=== PATIENT | female | born 1980 ===

== ENCOUNTER 2018-06-04 22:27 | Emergency (ER) | payer SELFPAY ==
[2018-06-04] MEDS ORDERED: NS(*) 0.9% 1000 ML BAG 1,000 ML IV ONE (22:55)
[2018-06-04 23:09] LABS: PLATELET COUNT, AUTOMATED 206 K/uL (150-450)
[2018-06-04 23:12] LABS: INR 1.9
--- NOTE | 2018-06-04 23:19 | RADIOLOGY IMAGING REPORT ---
[facility] PATIENT NAME: Sandra Sanderson : 1980 MR: [id number] V: [id number] EXAM DATE: ORDERING PHYSICIAN: DONALD JUDGE TECHNOLOGIST: Location: [facility] [place] Patient: Sandra Sanderson : 1980 Visit/Account:[id number] Date of Sevice: 06/04/2018 Portable chest: Indication: Tube placement. Technique: A single frontal film was obtained. Comparison: None. Lines and tubes: The tip of the ET tube is approximately 6.3 cm above the hailey. The nasogastric tub e extends below the diaphragm. Skeletal and soft tissue structures: Intact and unremarkable. Heart and mediastinum: Within normal limits. Lung fernández: Well-expanded. No focal opacities. Pleural spaces: No evidence of pneumothorax or effusion. Impression: The ET tube and NG tube are in satisfactory position. The lung fernández are clear. Report Dictated By: Nazario Young MD at 06/04/2018 11:14 PM Report E-Signed By: Nazario Young MD at 06/04/2018 11:16 PM WSN:[id number]
--- NOTE | 2018-06-04 23:23 | EKG ---
FACILITY: [facility] PATIENT NAME: DEDE BAZZI : [id number] MR: [id number] V: [id number] EXAM DATE: ORDERING PHYSICIAN: DONALD JUDGE TECHNOLOGIST: Test Reason : Blood Pressure : / mmHG Vent. Rate : 100 BPM Atrial Rate : 099 BPM P-R Int : 106 ms QRS Dur : 086 ms QT Int : 426 ms P-R-T Axes : 074 079 085 degrees QTc Int : 549 ms Normal sinus rhythm ST and T wave abnormality, consider anterior ischemia Prolonged QT Abnormal ECG No previous ECGs available Confirmed by FRANKI DURAN ([id number]) on 06/05/2018 6:00:40 AM Referred By: Confirmed By:FRANKI DURAN
[2018-06-04] MEDS ORDERED: PIPERACILLIN/TAZO*3.375GM VIAL 3.375 GM in NS(*) 0.9% 100 ML ADDVANT BAG 100 ML IVPB ONE (23:55)
[2018-06-05] MEDS ORDERED: LACTULOSE 10 GM/15 ML UDCUP PO ONE (01:10)
[2018-06-05] MEDS ORDERED: MIDAZOLAM 50 MG/10 ML VIAL 100 MG in NS(*) 0.9% 100 ML BAG 80 ML IV SCH (01:25)
--- NOTE | 2018-06-05 01:34 | RADIOLOGY IMAGING REPORT ---
FACILITY: [facility] [place] PATIENT NAME: Sandra Sanderson : 1980 MR: [id number] V: [id number] EXAM DATE: ORDERING PHYSICIAN: DONALD JUDGE TECHNOLOGIST: Location: [facility] Patient: Sandra Sanderson : 1980 Visit/Account:[id number] Date of Sevice: 06/04/2018 ADDENDUM #1 One of the following dose optimization techniques was utilized in the performance of this exam: Autom ated exposure control; adjustment of the mA and/or kV according to the patient's size; or use of an i terative reconstruction technique. Specific details can be referenced in the facility's radiology C T exam operational policy. Report Dictated By: Andrew Boyle MD at 06/16/2018 6:40 PM Report E-Signed By: Andrew Boyle MD at 06/16/2018 6:43 PM ORIGINAL REPORT CHEST/AB/PELV W/OUT CONTRAST EXAMINATION: CT chest without contrast Additional Pertinent history: Trauma/altered mental status TECHNIQUE: Spiral scan was obtained through the chest /abdomen/pelvis without contrast from lung apex to upper abdomen COMPARISON STUDIES: none. FINDINGS: Lungs / pleura: No pneumothorax. No obvious lung contusion change. Mild bronchial thickening changes noted throughout both lung fernández with no consolidation effusion or parenchymal mass lesion seen. Mediastinum / darien: negative Heart / pericardium: negative Vessels: negative Musculoskeletal / Body wall: No acute fractures noted. Vertebral bodies well-maintained with no compr ession deformities or fractures. Posterior elements are intact. Lower sacrum has a cortical offset ap pearing represent fracture. This correlates with an area of patient motion, however. Lymph node assessment: negative Lower neck: negative Liver / biliary: Fatty infiltrative changes within the liver. No focal liver lesion. No perihepatic f luid. Pancreas: negative Spleen: No splenic laceration. No perisplenic fluid. Adrenal glands: negative Kidneys / retroperitoneum: negative Pelvis: Shrestha catheter within the bladder which is decompressed. Bowel / peritoneum / mesenteries: No colonic mass lesions. No bowel inflammation. No interloop fluid. Vessels: negative Musculoskeletal / Body wall: No obvious fractures noted. There is a central viral load compression ch jd involving the L3 vertebral body. Posterior elements are well-maintained and aligned. Lymph node assessment: negative Lower chest: negative IMPRESSION: 1. Negative CT scan of the chest/abdomen/pelvis for acute traumatic injury. 2. Fatty infiltrative changes within the liver. Bronchial thickening changes noted 3. Pseudofracture appearance lower sternum from breathing artifact. Report Dictated By: Andrew Boyle MD at 06/05/2018 1:16 AM Report E-Signed By: Andrew Boyle MD at 06/05/2018 1:31 AM WSN:[id number]
--- NOTE | 2018-06-05 01:36 | RADIOLOGY IMAGING REPORT ---
FACILITY: [facility] [place] PATIENT NAME: Sandra Sanderson : 1980 MR: [id number] V: [id number] EXAM DATE: ORDERING PHYSICIAN: DONALD JUDGE TECHNOLOGIST: Location: [facility] Patient: Sandra Sanderson : 1980 Visit/Account:[id number] Date of Sevice: 06/04/2018 ADDENDUM #2 The heading should have said " CT scan of the cervical spine without contrast" Report Dictated By: Andrew Boyle MD at 06/20/2018 6:30 PM Report E-Signed By: Andrew Boyle MD at 06/20/2018 6:31 PM ADDENDUM #1 One of the following dose optimization techniques was utilized in the performance of this exam: Autom ated exposure control; adjustment of the mA and/or kV according to the patient's size; or use of an i terative reconstruction technique. Specific details can be referenced in the facility's radiology C T exam operational policy. Report Dictated By: Andrew Boyle MD at 06/16/2018 6:44 PM Report E-Signed By: Andrew Boyle MD at 06/16/2018 6:44 PM ORIGINAL REPORT C-SPINE W/O CONTRAST EXAMINATION: CT cervical spine with contrast Additional pertinent history: Trauma/altered mental status COMPARISON STUDIES: 09/11/2012 not available TECHNIQUE: Axial images were obtained from the skull base through the upper thoracic spine with IV co ntrast administration. Coronal and sagittal reformatted images were obtained from the axial source da ta. FINDINGS: Prevertebral soft tissues: Negative Alignment: Negative Vertebral bodies: There is cortical offset of the C2 vertebral body on the sagittal images creating t he appearance of a C2 fracture from motion artifact. This is also rendering cortical offset of the ri ght mandible creating a similar cortical offset pseudofracture on the coronal images (image 34/84 ser ies 7) Posterior elements: Posterior elements are well-maintained with no fracture or facet disruption to ordonez ggest acute fracture. Disc spaces: Negative Visualized soft tissues anterior neck: ET tube and NG tube traversing the anterior soft tissues. Visualized lung/mediastinum: Negative IMPRESSION: 1. Motion artifact degrading images significantly particularly at the C2 level creating a pseudofract ure appearance of the C2 vertebral body and of the right mandible. No obvious acute fracture noted. Report Dictated By: Andrew Boyle MD at 06/05/2018 1:04 AM Report E-Signed By: Andrew Boyle MD at 06/05/2018 1:33 AM WSN:[id number]
--- NOTE | 2018-06-05 01:38 | RADIOLOGY IMAGING REPORT ---
FACILITY: [facility] [place] PATIENT NAME: Sandra Sanderson : 1980 MR: [id number] V: [id number] EXAM DATE: ORDERING PHYSICIAN: DONALD JUDGE TECHNOLOGIST: Location: [facility] [place] Patient: Sandra Sanderson : 1980 Visit/Account:[id number] Date of Sevice: 06/04/2018 HEAD W/O CONTRAST EXAMINATION: CT head/brain without contrast HISTORY: Trauma. Altered mental status TECHNIQUE: Contiguous axial images were obtained from the skull base to the vertex without intravenou s contrast. One of the following dose optimization techniques was utilized in the performance of this exam: Autom ated exposure control; adjustment of the mA and/or kV according to the patient's size; or use of an i terative reconstruction technique. Specific details can be referenced in the facility's radiology C T exam operational policy. COMPARISON STUDIES: None FINDINGS: Ventricles/sulci/fissures: Negative Masses/hemorrhage/midline shift: Negative White matter: No white matter edema. Jose-white differentiation: No cerebral edema Extra-axial spaces: No subdural or epidural fluid collections. No subarachnoid blood Dural venous sinuses/arterial structures: Negative Skull base/calvarium: Negative Visualized mastoid air cells/paranasal sinuses: Negative IMPRESSION: 1. Negative CT scan of the head for acute intracranial pathology. Report Dictated By: Andrew Boyle MD at 06/05/2018 1:33 AM Report E-Signed By: Andrew Boyle MD at 06/05/2018 1:35 AM WSN:[id number]
[2018-06-05] MEDS ORDERED: MIDAZOLAM 50 MG/10 ML VIAL IV ONE ×2 (01:54→01:55)
[2018-06-05] MEDS ORDERED: NS(*) 0.9% 100 ML BAG 100 ML ONE (01:55)
[2018-06-05] MEDS ORDERED: NOREPINEPH BITAR 4 MG/4 ML AMP ONE (03:46)
[2018-06-05] MEDS ORDERED: D5W(*) 250 ML BAG 250 ML ONE ×2 (03:46→06:34)
[2018-06-05 04:10] VITALS: BP 104/56
[2018-06-05] MEDS ORDERED: SODIUM BICAR(* 8.4% 50 ML SYR 50 ML SYR ONE (04:57)
[2018-06-05] MEDS ORDERED: KCL (*) 20 MEQ/100 ML PREMIX 100 ML ONE ×2 (05:00→05:01)
--- NOTE | 2018-06-05 05:33 | ER Report ---
History and Physical Time Seen By MD: 05:29 HPI/ROS CHIEF COMPLAINT: Unresponsive, " code blue" HISTORY OF PRESENT ILLNESS: Patient is a 38-year-old female here after being found unresponsive by the patient's boyfriend. Reportedly, earlier today, the patient was drinking vodka her boyfriend's report and attempted to take a nap in her yard prompting the boyfriend put her to sleep inside. Several hours later , per boyfriend's report, he checked on the patient and she was unarousable prompting EMS to be called. She was noted to have decreased oxygen saturations per EMS report in the 50s prompting [id number] oxygenation. Patient remained unresponsive at time of arrival in the emergency department at which time she was promptly intubated and resuscitation efforts were commenced. Patient had received Narcan 2 mg in the field, and a repeat dose was administered at time of arrival without resolution of symptoms. Patient also received an amp of D50. Patient was noted to be hypotensive in the 80s systolic prompting fluid administration. There are no obvious signs of trauma present on evaluation. Pupils were 3 and sluggish. Patient did not have purposeful movement at time of initial evaluation. Patient was initially hypothermic, see nursing notes for further details. Patient did have a history of depression, alcohol dependence, anxiety. REVIEW OF SYSTEMS: Unable to obtain due to patient's mental status Allergies: Coded Allergies: No Known Drug Allergies (Unverified , 09/12/16) Home Meds Active Scripts Sulfamethoxazole/Trimet 800-160 Mg Tab (BACTRIM DS TABLET) 1 Each Tablet, 1 TAB PO Q12H, #14 MG TAKE ONE TABLET BY MOUTH EVERY TWELVE HOURS Prov:FRITZ WATKINS MD 01/16/17 Reported Medications Multivitamin (MULTIVITAMINS) 1 Each Tablet, 1 EACH PO 09/12/16 Bupropion Hcl (WELLBUTRIN XL) 150 Mg Tab.er.24h, PO QDAY, TAB 09/12/16 Escitalopram Oxalate (LEXAPRO) 10 Mg Tab, FT, TAB 09/12/16 Hx Smoking: Yes Hx Substance Use Disorder: Yes (ETOH ABUSE/DEPENDANCE) Hx Alcohol Use: Yes (ABUSE/DEPENDANCE) Constitutional Vital Sign - Last 24 Hours 06/04/18 06/04/18 06/04/18 06/04/18 22:29 22:30 22:31 22:33 Pulse ? Resp 18 19 B/P (MAP) 87/34 (51) 06/04/18 06/04/18 06/04/18 06/04/18 22:35 22:36 22:37 22:39 Pulse 92 93 92 Resp 16 27 23 B/P (MAP) 81/71 (74) 06/04/18 06/04/18 06/04/18 06/04/18 22:41 22:43 22:45 22:45 Pulse ??? 91 88 Resp 26 25 23 B/P (MAP) 72/22 (39) FiO2 60.0 06/04/18 06/04/18 06/04/18 06/04/18 22:47 22:49 22:51 22:53 Pulse 91 ??? 101 102 Resp 25 24 22 23 B/P (MAP) 99/51 (67) Pulse Ox 74 100 100 06/04/18 06/04/18 06/04/18 06/04/18 22:55 22:55 22:57 22:59 Pulse 98 101 98 95 Resp 24 22 20 25 B/P (MAP) 105/51 (69) Pulse Ox 100 100 99 06/04/18 06/04/18 06/04/18 06/04/18 23:00 23:01 23:03 23:04 Pulse 97 95 Resp 20 26 B/P (MAP) 93/75 (81) 61/43 (49) Pulse Ox 85 100 06/04/18 06/04/18 06/04/18 06/04/18 23:05 23:07 23:08 23:09 Pulse 91 ??? 88 Resp 17 11 18 B/P (MAP) 76/67 (70) 74/32 (46) Pulse Ox 100 100 06/04/18 06/04/18 06/04/18 06/04/18 23:11 23:12 23:13 23:15 Pulse 83 94 98 Resp 21 18 17 B/P (MAP) 91/43 (59) Pulse Ox 100 100 100 06/04/18 06/04/18 06/04/18 06/04/18 23:16 23:17 23:19 23:20 Pulse 104 105 Resp 15 16 B/P (MAP) 83/52 (62) 78/52 (61) Pulse Ox 100 100 06/04/18 06/04/18 06/04/18 06/04/18 23:21 23:23 23:24 23:25 Pulse 100 95 90 Resp 15 16 25 B/P (MAP) 70/43 (52) Pulse Ox 78 100 100 06/04/18 06/04/18 06/04/18 06/04/18 23:27 23:28 23:29 23:31 Pulse 88 87 87 Resp 13 11 23 B/P (MAP) 70/44 (53) Pulse Ox 100 100 100 06/04/18 06/04/18 06/04/18 06/04/18 23:32 23:33 23:35 23:36 Pulse 89 91 Resp 21 24 B/P (MAP) 82/52 (62) 83/48 (60) Pulse Ox 97 98 06/04/18 06/04/18 06/04/18 06/04/18 23:37 23:39 23:40 23:41 Pulse 90 92 92 Resp 7 19 14 B/P (MAP) 70/45 (53) Pulse Ox 100 100 100 06/04/18 06/04/18 06/04/18 06/04/18 23:43 23:44 23:45 23:47 Pulse 91 88 89 Resp 18 23 22 B/P (MAP) 81/53 (62) Pulse Ox 95 95 93 06/04/18 06/04/18 06/04/18 06/04/18 23:48 23:49 23:51 23:52 Pulse 88 87 Resp 16 24 B/P (MAP) 89/45 (60) 80/52 (61) Pulse Ox 98 96 06/04/18 06/04/18 06/05/18 06/05/18 23:53 23:55 00:00 00:04 Pulse 89 90 Resp 27 10 B/P (MAP) 81/45 (57) 93/50 (64) Pulse Ox 96 98 06/05/18 06/05/18 06/05/18 06/05/18 00:08 00:12 00:16 00:17 Pulse 89 Resp 14 B/P (MAP) 91/45 (60) 80/62 (68) 90/20 (43) 06/05/18 06/05/18 06/05/18 06/05/18 00:20 00:23 00:24 00:25 Pulse 95 93 Resp 12 17 B/P (MAP) 54/51 (52) 95/55 (68) Pulse Ox 96 99 06/05/ 7//31 05//06/05/18 00:30 00:32 00:34 00:36 Pulse 96 98 95 95 Resp 31 10 9 B/P (MAP) 91/48 (62) 93/56 (68) Pulse Ox 79 81 98 06/05/06/05/31 05//06/05/18 00:38 00:40 00:44 00:48 Pulse 96 93 ??? Resp 17 23 25 B/P (MAP) 86/76 (79) 91/55 (67) 94/55 (68) Pulse Ox 97 90 100 06/05/31 05//31 05//06/05/18 00:50 00:54 00:55 00:56 Pulse 95 94 96 Resp 22 23 26 B/P (MAP) 101/53 (69) 103/59 (74) Pulse Ox 99 99 99 06/05/31 05// 7//06/05/18 00:58 01:00 01:02 01:04 Pulse 97 95 95 95 Resp 26 26 B/P (MAP) 101/55 (70) Pulse Ox 100 99 99 06/05/06/05/31 05//06/05/18 01:05 01:06 01:11 01:13 Pulse 97 99 99 Resp 26 B/P (MAP) 105/59 (74) Pulse Ox 100 100 100 06/05/1806/05/06/05/06/05/18 01:15 01:19 01:20 01:21 Pulse 99 100 100 Resp 25 30 B/P (MAP) 109/53 (71) 111/55 (73) Pulse Ox 98 99 06/05/ 7//18 7//06/05/18 01:23 01:25 01:27 01:29 Pulse 99 98 98 100 Resp 27 27 B/P (MAP) 107/55 (72) Pulse Ox 99 100 06/05/18 7//18 7//18 06/05/18 01:30 01:31 01:33 01:35 Pulse 97 99 104 Resp 28 23 22 B/P (MAP) 101/52 (68) 99/48 (65) Pulse Ox 94 93 81 7/23/18 7/23/18 7/23/18 7//18 01:37 01:39 01:40 01:41 Pulse 99 100 97 Resp 30 25 B/P (MAP) 101/32 (55) Pulse Ox 93 99 7/23/18 7/23/18 7/23/18 7//18 01:42 01:43 01:45 01:47 Pulse 98 95 97 Resp 20 25 B/P (MAP) 85/66 (72) 106/58 (74) Pulse Ox 100 7/23/18 7/23/18 7//18 7//18 01:49 01:50 01:50 01:51 Pulse 99 100 Resp 28 28 B/P (MAP) 114/66 (82) Pulse Ox 100 100 FiO2 100.0 7/23/18 7/23/18 7//18 7// 01:53 01:55 01:57 02:00 Pulse 101 102 Resp 26 22 B/P (MAP) 112/56 (74) 108/63 (78) Pulse Ox 100 100 7/23/18 7/23/18 7/23/18 7//18 02:03 02:05 02:07 02:10 Pulse 102 102 Resp 28 27 B/P (MAP) 108/64 (79) 114/56 (75) Pulse Ox 100 100 7/23/18 7/23/18 7/23/18 7//18 02:11 02:13 02:15 02:17 Pulse 101 102 102 104 Resp 28 25 26 B/P (MAP) 105/58 (74) Pulse Ox 100 100 100 7/23/18 7/23/18 7/23/18 7//18 02:19 02:20 02:21 02:23 Pulse 104 103 102 Resp 30 30 26 B/P (MAP) 112/57 (75) Pulse Ox 100 100 100 7/23/18 7/23/18 7/23/18 7//18 02:25 02:27 02:29 02:30 Pulse 106 110 109 Resp 26 24 B/P (MAP) 103/28 (53) 93/60 (71) Pulse Ox 100 100 7/23/18 7/23/18 7/23/18 7 02:31 02:33 02:35 02:37 Pulse 112 110 108 110 Resp 26 27 28 B/P (MAP) 102/58 (73) Pulse Ox 77 100 100 100 7/23/18 7/23/18 7/23/18 7/ 02:39 02:40 02:41 02:43 Pulse 107 111 111 Resp 27 B/P (MAP) 104/54 (71) Pulse Ox 100 23/18 7/23/18 7/23/18 06/05/18 02:45 02:47 02:50 02:51 Pulse 108 108 108 Resp 27 29 B/P (MAP) 104/60 (75) 106/53 (70) Pulse Ox 100 100 100 /23/18 7//18 7//06/05/18 02:55 02:57 02:59 03:00 Pulse 109 108 109 Resp 28 B/P (MAP) 102/56 (71) 107/54 (71) Pulse Ox 100 100 /23/18 7/23/18 7/23/18 7 03:01 03:03 03:05 03:07 Pulse 109 110 110 Resp 15 17 27 B/P (MAP) 82/61 (68) Pulse Ox 95 100 100 /23/18 7//18 7//18 06/05/18 03:09 03:10 03:12 03:14 Pulse 106 109 109 Resp 30 28 B/P (MAP) 97/45 (62) Pulse Ox 100 100 98 23/18 7//18 7/23/18 7 03:16 03:17 03:18 03:20 Pulse 108 111 114 Resp 63 28 29 B/P (MAP) 100/47 (64) 97/51 (66) Pulse Ox 100 96 98 7/23/18 7/23/18 7/23/18 06/05/18 03:24 03:25 03:26 03:28 Pulse 110 110 111 Resp 27 26 27 B/P (MAP) 95/47 (63) Pulse Ox 100 100 100 /23/18 7/23/18 7/23/18 7 03:30 03:32 03:34 03:35 Pulse 116 111 112 Resp B/P (MAP) 104/63 (77) 91/50 (64) Pulse Ox 100 100 99 06/05/18 06/05/18/06/05/18 03:36 03:38 03:40 03:42 Pulse 111 111 112 110 Resp B/P (MAP) 98/49 (65) Pulse Ox 99 99 96 99 06/05/18 06/05/18 06/05/18 06/05/18 03:45 03:46 03:48 03:50 Pulse 110 ??? Resp 29 B/P (MAP) 93/52 (66) 101/52 (68) Pulse Ox 99 100 06/05/18 06/05/18/06/05/18 03:52 03:54 03:55 03:56 Pulse 111 111 111 Resp B/P (MAP) 102/44 (63) Pulse Ox 97 96 96 06/05/06/05/18 06/05/18 06/05/18 03:58 04:00 04:02 04:04 Pulse 112 ??? 112 111 Resp 27 B/P (MAP) 91/57 (68) Pulse Ox 96 95 94 06/05/18 06/05/18 06/05/18 06/05/18 04:05 04:06 04:08 04:10 Pulse 112 ??? Resp 56 33 B/P (MAP) 105/51 (69) 104/56 (72) Pulse Ox 94 95 06/05/18 06/05/18 06/05/18 06/05/18 04:12 04:14 04:16 04:22 Pulse ? Resp 42 Pulse Ox 94 18 //18 /06/05/18 04:22 04:22 04:26 04:28 Pulse 97 124 121 Resp 27 Pulse Ox 97 91 FiO2 80.0 06/05/18 06/05/18 7//06/05/18 04:30 04:32 04:34 04:36 Pulse 122 120 120 120 Pulse Ox 97 97 97 97 06/05/18 04:38 Pulse ??? Pulse Ox 96 Physical Exam General Appearance: Unresponsive, intubated Eyes: Pupils 3 mm and sluggish, scleral icterus present ENT, Mouth: Endotracheal tube in place Respiratory: Lung sounds bilaterally Cardiovascular: Regular rate and rhythm. No murmur Gastrointestinal: Abdomen is soft and mildly distended, no masses, bowel sounds normal. Neurological: No purposeful movements, decorticated posturing present Skin: Cool and pale, no rashes. Musculoskeletal: Neck is supple, no signs of trauma DIFFERENTIAL DIAGNOSIS: After history and physical exam differential diagnosis was considered for liver failure, polysubstance abuse, trauma, overdose, electrolyte abnormality, toxic ingestion, anoxic brain injury Medical Decision Making Data Points Result Diagram: 06/04/18224606/04/182246 Laboratory Hematology Test 06/04/18 22:33 06/04/18 22:47 06/04/18 22:54 06/05/18 00:40 Whole Blood Glucose 379 mg/DL (75-110) Red Blood Count 2.00 M/uL (4.17-5.56) Mean Corpuscular Volume 124.5 fL (80.0-96.0) Mean Corpuscular Hemoglobin 35.1 pg (26.0-33.0) Mean Corpuscular Hemoglobin Concent 28.2 g/dL (32.0-36.0) Red Cell Distribution Width 20.3 % (11.5-14.5) Mean Platelet Volume 9.5 fL (7.2-11.1) Neutrophils (%) (Auto) 77.0 % (39.4-72.5) Lymphocytes (%) (Auto) 18.2 % (17.6-49.6) Monocytes (%) (Auto) 4.2 % (4.1-12.4) Eosinophils (%) (Auto) 0.2 % (0.4-6.7) Basophils (%) (Auto) 0.4 % (0.3-1.4) Nucleated RBC Relative Count (auto) 0.4 /100WBC Neutrophils # (Auto) 8.1 K/uL (2.0-7.4) Lymphocytes # (Auto) 1.9 K/uL (1.3-3.6) Monocytes # (Auto) 0.4 K/uL (0.3-1.0) Eosinophils # (Auto) 0.0 K/uL (0.0-0.5) Basophils # (Auto) 0.0 K/uL (0.0-0.1) Nucleated RBC Absolute Count (auto) 0.04 K/uL Peripheral Blood Smear Yes Y/N Prothrombin Time 22.1 seconds (12.0-14.4) Prothromb Time International Ratio 1.90 Activated Partial Thromboplast Time 54 seconds (23-35) Sodium Level 128 mmol/L (137-145) Potassium Level 3.1 mmol/L (3.5-5.0) Chloride Level 90 mmol/L (98-107) Carbon Dioxide Level < 5 mmol/L (22-31) Blood Urea Nitrogen 3 mg/dl (7-18) Creatinine 1.00 mg/dl (0.52-1.04) Glomerular Filtration Rate Calc > 60.0 Random Glucose 245 mg/dl (75-110) Calcium Level 9.0 mg/dl (8.4-10.2) Total Bilirubin 7.6 mg/dl (0.2-1.3) Aspartate Amino Transf (AST/SGOT) 475 U/L (0-35) Alanine Aminotransferase (ALT/SGPT) 79 U/L (0-56) Alkaline Phosphatase 210 U/L (0-126) Total Protein 5.9 g/dl (6.3-8.2) Albumin 3.3 g/dl (3.5-5.0) Lipase 1010 U/L (23-300) Human Chorionic Gonadotropin, Qual Negative (NEGATIVE) Serum Alcohol < 10 mg/dl Urine Color Lian Urine Clarity Clear Urine pH 6.0 pH (4.8-9.5) Urine Specific [place] 1.013 Urine Protein 30 mg/dL (NEGATIVE) Urine Glucose (UA) 50 mg/dL (NEGATIVE) Urine Ketones 80 mg/dL (NEGATIVE) Urine Blood Small (NEGATIVE) Urine Nitrite Negative (NEGATIVE) Urine Bilirubin Small (NEGATIVE) Urine Urobilinogen 4.0 mg/dL (0.2-1.9) Urine Leukocyte Esterase Negative (NEGATIVE) Urine RBC 1 /HPF (0-2/HPF) Urine WBC 1 /HPF (0-5/HPF) Urine Squamous Epithelial Cells Many /LPF (NONE-FEW) Urine Bacteria Few /HPF (NONE-FEW) Urine Hyaline Casts Few /LPF (NONE-FEW) Urine Mucus None /HPF (NONE-FEW) Urine Opiates Screen Negative Urine Barbiturates Screen Negative Ur Tricyclic Antidepressants Screen Negative Urine Phencyclidine Screen Negative Urine Amphetamines Screen Negative Urine Benzodiazepines Screen Negative Urine Cocaine Screen Negative Urine Cannabinoids Screen Negative Ammonia 232 UMOL/L (9-33) Test 06/05/18 02:51 Blood Gas Puncture Site Right radial Blood Gas Patient Temperature 37.9c DEGREES Arterial Blood pH 6.95 (7.35-7.45) Arterial Blood Partial Pressure CO2 41 mmHg (32-37) Arterial Blood Partial Pressure O2 200 mmHg (60-80) Arterial Blood HCO3 9 mmol/L (20-26) Arterial Blood Oxygen Saturation 99 % (92-100) Arterial Blood Base Excess -23.0 mmol/L Shiraz Test Acceptable Oxygen Liters/Minute 100 Lactate 13.4 mmol/L (0.7-2.1) Acetaminophen Level < 10 ug/ml Chemistry Test 06/04/18 22:33 06/04/18 22:47 06/04/18 22:54 06/05/18 00:40 Whole Blood Glucose 379 mg/DL (75-110) White Blood Count 10.5 k/uL (4.5-11.0) Red Blood Count 2.00 M/uL (4.17-5.56) Hemoglobin 7.0 g/dL (12.0-16.0) Hematocrit 24.9 % (34.0-47.0) Mean Corpuscular Volume 124.5 fL (80.0-96.0) Mean Corpuscular Hemoglobin 35.1 pg (26.0-33.0) Mean Corpuscular Hemoglobin Concent 28.2 g/dL (32.0-36.0) Red Cell Distribution Width 20.3 % (11.5-14.5) Platelet Count 206 K/uL (150-450) Mean Platelet Volume 9.5 fL (7.2-11.1) Neutrophils (%) (Auto) 77.0 % (39.4-72.5) Lymphocytes (%) (Auto) 18.2 % (17.6-49.6) Monocytes (%) (Auto) 4.2 % (4.1-12.4) Eosinophils (%) (Auto) 0.2 % (0.4-6.7) Basophils (%) (Auto) 0.4 % (0.3-1.4) Nucleated RBC Relative Count (auto) 0.4 /100WBC Neutrophils # (Auto) 8.1 K/uL (2.0-7.4) Lymphocytes # (Auto) 1.9 K/uL (1.3-3.6) Monocytes # (Auto) 0.4 K/uL (0.3-1.0) Eosinophils # (Auto) 0.0 K/uL (0.0-0.5) Basophils # (Auto) 0.0 K/uL (0.0-0.1) Nucleated RBC Absolute Count (auto) 0.04 K/uL Peripheral Blood Smear Yes Y/N Prothrombin Time 22.1 seconds (12.0-14.4) Prothromb Time International Ratio 1.90 Activated Partial Thromboplast Time 54 seconds (23-35) Glomerular Filtration Rate Calc > 60.0 Calcium Level 9.0 mg/dl (8.4-10.2) Total Bilirubin 7.6 mg/dl (0.2-1.3) Aspartate Amino Transf (AST/SGOT) 475 U/L (0-35) Alanine Aminotransferase (ALT/SGPT) 79 U/L (0-56) Alkaline Phosphatase 210 U/L (0-126) Total Protein 5.9 g/dl (6.3-8.2) Albumin 3.3 g/dl (3.5-5.0) Lipase 1010 U/L (23-300) Human Chorionic Gonadotropin, Qual Negative (NEGATIVE) Serum Alcohol < 10 mg/dl Urine Color Lian Urine Clarity Clear Urine pH 6.0 pH (4.8-9.5) Urine Specific [place] 1.013 Urine Protein 30 mg/dL (NEGATIVE) Urine Glucose (UA) 50 mg/dL (NEGATIVE) Urine Ketones 80 mg/dL (NEGATIVE) Urine Blood Small (NEGATIVE) Urine Nitrite Negative (NEGATIVE) Urine Bilirubin Small (NEGATIVE) Urine Urobilinogen 4.0 mg/dL (0.2-1.9) Urine Leukocyte Esterase Negative (NEGATIVE) Urine RBC 1 /HPF (0-2/HPF) Urine WBC 1 /HPF (0-5/HPF) Urine Squamous Epithelial Cells Many /LPF (NONE-FEW) Urine Bacteria Few /HPF (NONE-FEW) Urine Hyaline Casts Few /LPF (NONE-FEW) Urine Mucus None /HPF (NONE-FEW) Urine Opiates Screen Negative Urine Barbiturates Screen Negative Ur Tricyclic Antidepressants Screen Negative Urine Phencyclidine Screen Negative Urine Amphetamines Screen Negative Urine Benzodiazepines Screen Negative Urine Cocaine Screen Negative Urine Cannabinoids Screen Negative Ammonia 232 UMOL/L (9-33) Test 06/05/18 02:51 Blood Gas Puncture Site Right radial Blood Gas Patient Temperature 37.9c DEGREES Arterial Blood pH 6.95 (7.35-7.45) Arterial Blood Partial Pressure CO2 41 mmHg (32-37) Arterial Blood Partial Pressure O2 200 mmHg (60-80) Arterial Blood HCO3 9 mmol/L (20-26) Arterial Blood Oxygen Saturation 99 % (92-100) Arterial Blood Base Excess -23.0 mmol/L Shiraz Test Acceptable Oxygen Liters/Minute 100 Lactate 13.4 mmol/L (0.7-2.1) Acetaminophen Level < 10 ug/ml Coagulation Test 06/04/18 22:47 Prothrombin Time 22.1 seconds Prothromb Time International Ratio 1.90 Activated Partial Thromboplast Time 54 seconds Toxicology Test 06/04/18 22:47 06/04/18 22:54 06/05/18 02:51 Serum Alcohol < 10 mg/dl Urine Opiates Screen Negative Urine Barbiturates Screen Negative Ur Tricyclic Antidepressants Screen Negative Urine Phencyclidine Screen Negative Urine Amphetamines Screen Negative Urine Benzodiazepines Screen Negative Urine Cocaine Screen Negative Urine Cannabinoids Screen Negative Acetaminophen Level < 10 ug/ml Urinalysis Test 06/04/18 22:54 Urine Color Lian Urine Clarity Clear Urine pH 6.0 pH (4.8-9.5) Urine Specific [place] 1.013 Urine Protein 30 mg/dL (NEGATIVE) Urine Glucose (UA) 50 mg/dL (NEGATIVE) Urine Ketones 80 mg/dL (NEGATIVE) Urine Blood Small (NEGATIVE) Urine Nitrite Negative (NEGATIVE) Urine Bilirubin Small (NEGATIVE) Urine Urobilinogen 4.0 mg/dL (0.2-1.9) Urine Leukocyte Esterase Negative (NEGATIVE) Urine RBC 1 /HPF (0-2/HPF) Urine WBC 1 /HPF (0-5/HPF) Urine Squamous Epithelial Cells Many /LPF (NONE-FEW) Urine Bacteria Few /HPF (NONE-FEW) Urine Hyaline Casts Few /LPF (NONE-FEW) Urine Mucus None /HPF (NONE-FEW) EKG/Imaging EKG Interpretation Test Reason : Blood Pressure : / mmHG Vent. Rate : 100 BPM Atrial Rate : 099 BPM P-R Int : 106 ms QRS Dur : 086 ms QT Int : 426 ms P-R-T Axes : 074 079 085 degrees QTc Int : 549 ms Normal sinus rhythm ST and T wave abnormality, consider anterior ischemia Prolonged QT Abnormal ECG No previous ECGs available Confirmed by FRANKI DURAN ([id number]) on 06/05/2018 6:00:40 AM Monitor Interpretation: Normal Sinus Rhythm Imaging HEAD W/O CONTRAST EXAMINATION: CT head/brain without contrast HISTORY: Trauma. Altered mental status TECHNIQUE: Contiguous axial images were obtained from the skull base to the vertex without intravenous contrast. One of the following dose optimization techniques was utilized in the performance of this exam: Automated exposure control; adjustment of the mA and/ or kV according to the patient's size; or use of an iterative reconstruction technique. Specific details can be referenced in the facility's radiology CT exam operational policy. COMPARISON STUDIES: None FINDINGS: Ventricles/sulci/fissures: Negative Masses/hemorrhage/midline shift: Negative White matter: No white matter edema. Jose-white differentiation: No cerebral edema Extra-axial spaces: No subdural or epidural fluid collections. No subarachnoid blood Dural venous sinuses/arterial structures: Negative Skull base/calvarium: Negative Visualized mastoid air cells/paranasal sinuses: Negative IMPRESSION: 1. Negative CT scan of the head for acute intracranial pathology. C-SPINE W/O CONTRAST EXAMINATION: CT cervical spine with contrast Additional pertinent history: Trauma/altered mental status COMPARISON STUDIES: 09/11/2012 not available TECHNIQUE: Axial images were obtained from the skull base through the upper thoracic spine with IV contrast administration. Coronal and sagittal reformatted images were obtained from the axial source data. FINDINGS: Prevertebral soft tissues: Negative Alignment: Negative Vertebral bodies: There is cortical offset of the C2 vertebral body on the sagittal images creating the appearance of a C2 fracture from motion artifact. This is also rendering cortical offset of the right mandible creating a similar cortical offset pseudofracture on the coronal images (image 34/84 series 7) Posterior elements: Posterior elements are well-maintained with no fracture or facet disruption to suggest acute fracture. Disc spaces: Negative Visualized soft tissues anterior neck: ET tube and NG tube traversing the anterior soft tissues. Visualized lung/mediastinum: Negative IMPRESSION: 1. Motion artifact degrading images significantly particularly at the C2 level creating a pseudofracture appearance of the C2 vertebral body and of the right mandible. No obvious acute fracture noted. Portable chest: Indication: Tube placement. Technique: A single frontal film was obtained. Comparison: None. Lines and tubes: The tip of the ET tube is approximately 6.3 cm above the hailey. The nasogastric tube extends below the diaphragm. Skeletal and soft tissue structures: Intact and unremarkable. Heart and mediastinum: Within normal limits. Lung fernández: Well-expanded. No focal opacities. Pleural spaces: No evidence of pneumothorax or effusion. Impression: The ET tube and NG tube are in satisfactory position. The lung fernández are clear. CHEST/AB/PELV W/OUT CONTRAST EXAMINATION: CT chest without contrast Additional Pertinent history: Trauma/altered mental status TECHNIQUE: Spiral scan was obtained through the chest /abdomen/pelvis without contrast from lung apex to upper abdomen COMPARISON STUDIES: none. FINDINGS: Lungs / pleura: No pneumothorax. No obvious lung contusion change. Mild bronchial thickening changes noted throughout both lung fernández with no consolidation effusion or parenchymal mass lesion seen. Mediastinum / darien: negative Heart / pericardium: negative Vessels: negative Musculoskeletal / Body wall: No acute fractures noted. Vertebral bodies well- maintained with no compression deformities or fractures. Posterior elements are intact. Lower sacrum has a cortical offset appearing represent fracture. This correlates with an area of patient motion, however. Lymph node assessment: negative Lower neck: negative Liver / biliary: Fatty infiltrative changes within the liver. No focal liver lesion. No perihepatic fluid. Pancreas: negative Spleen: No splenic laceration. No perisplenic fluid. Adrenal glands: negative Kidneys / retroperitoneum: negative Pelvis: Shrestha catheter within the bladder which is decompressed. Bowel / peritoneum / mesenteries: No colonic mass lesions. No bowel inflammation. No interloop fluid. Vessels: negative Musculoskeletal / Body wall: No obvious fractures noted. There is a central viral load compression change involving the L3 vertebral body. Posterior elements are well-maintained and aligned. Lymph node assessment: negative Lower chest: negative IMPRESSION: 1. Negative CT scan of the chest/abdomen/pelvis for acute traumatic injury. 2. Fatty infiltrative changes within the liver. Bronchial thickening changes noted 3. Pseudofracture appearance lower sternum from breathing artifact. ED Course/Re-evaluation Clinical Indication for ER IV: Hydration, Hypotention, IV Access ED Course Patient is a 38-year-old female here after being found unresponsive by the patient's boyfriend. Reportedly, earlier today, the patient was drinking vodka her boyfriend's report and attempted to take a nap in her yard prompting the boyfriend put her to sleep inside. Several hours later, per boyfriend's report, he checked on the patient and she was unarousable prompting EMS to be called. She was noted to have decreased oxygen saturations per EMS report in the 50s prompting [id number] oxygenation. Patient remained unresponsive at time of arrival in the emergency department at which time she was promptly intubated and resuscitation efforts were commenced. Patient had received Narcan 2 mg in the field, and a repeat dose was administered at time of arrival without resolution of symptoms. Patient also received an amp of D50. Patient was noted to be hypotensive in the 80s systolic prompting fluid administration. There are no obvious signs of trauma present on evaluation. Pupils were 3 and sluggish. Patient did not have purposeful movement at time of initial evaluation. Patient was initially hypothermic, see nursing notes for further details. Patient did have a history of depression, alcohol dependence, anxiety. Patient was noted to have an initial pH on arterial blood gas of 6.6 with a bicarbonate of 2, hemoglobin of 7, ammonia level of 232, Lipase 1010, Lactate of 24, MCV 124, please see records for further labs. Patient was given a total of 8 L fluid and was started on norepinephrine for pressure support. She received sodium bicarbonate for severe acidosis. Patient was initially given a bolus of ketamine and later was started on Versed when pressures were more stable for sedation. Patient EKG showed prolonged QT without any signs of ST elevations. Of note, alcohol level was negative, tox screen was negative. Based on the patient's history of elevated ammonia, elevated LFTs, elevated lactate, elevated MCV, INR elevated in spite of not being on anticoagulants, history of chronic alcohol use-patient has a likely etiology of liver failure. CT imaging of the head, C-spine, chest abdomen pelvis was completed to rule out occult pathology such as necrotic bowel, abscess, nidus for sepsis. CT imaging was unremarkable aside for an enlarged liver, see radiology report. Patient was given lactulose due to elevated ammonia levels, Zosyn due to concern for infectious etiology, potassium repletion for her hypokalemia in the setting of acidosis and a unit of PRBC due to Hb of 7. Please see nursing note for further details. Due to the patient's acuity and the likely need for higher level care, patient was discussed with Dr. Barrett who is the mask layout designer for [facility] as well as [facility] who accepted the patient for transfer. Due to weather, the patient was transported by critical care ground transport. Repeat pH was 6.9, LA was 13. Arterial line was placed in the right femoral artery prior to transfer. A right sided external jugular line was in place as well as bilateral intraosseous access. Re-evaluation Patient was reevaluated several times and showed no acute deterioration Procedure Procedure: Rapid sequence intubation. Indication for the procedure was respiratory failure. The patient was preoxygenated with 100% oxygen by nasal cannula utilizing passive oxygenation.. The patient was not given rapid sequence intubation medications due to patient 's mental status. The patient was orally endotracheally intubated using a kaleidoscope with a 7.5 ETT. Tracheal intubation was confirmed with misting on the tube; breath sounds were auscultated equally bilaterally; appropriate color change with End Tidal CO2 detector. Chest X-ray shows ETT Adriana so the endotracheal tube was advanced 2 cm. The procedure was performed by myself. Decision to Disposition Date: Jun 05, 2018 Decision to Disposition Time: 05:32 Critical Care Time 3 hours of critical care time was utilized Transfer Facility Transfer to [facility] for ICU- Dr. Larson was accepting Check Processor Depart Departure Latest Vital Signs Vital Signs Date Time Temp Pulse Resp B/P (MAP) Pulse Ox O2 Delivery O2 Flow Rate FiO2 06/05/18 04:38 ??? 96 06/05/18 04:22 80.0 06/05/18 04:22 27 06/05/18 04:10 104/56 (72) Core Temperature (Celsius): ??? Impression: Primary Impression: Unresponsive Additional Impressions: Acidosis Liver failure Condition: Critical Disposition: XFER TO [facility] (transfer to [facility]) Problem Qualifiers DONALD JUDGE DO Jun 05, 2018 05:33
[2018-06-06] MEDS ORDERED: LEVOPHED KIT (*) 1 IVSOL 1 KIT in D5W(*) 250 ML BAG 250 ML IVPB ONE ×2 (05:05→05:10)
== END 2018-06-05 05:20 | disposition short-term general hospital (02) ==
LOC: ER 22:31
DX: R40.20 Unspecified coma (principal); E87.2 Acidosis; E86.0 Dehydration; K72.90 Hepatic failure, unspecified without coma
CPT/HCPCS: 31500; 36415; 36416; 36430; 36600; 70450; 71045; 71250; 72125; 74176; 80305; 80320; 80329; 81001; 82140; 82803; 82948; 83605; 83690; 84703; 85025; 85610; 85730; 86850; 86900; 86901; 86920; 93005; 94002; 96365; 96366; 96367; 99291; 99292; C1758; J2250; J2310; J2543; J3480; J7050; J7060; P9016; 82040; 82247; 82310; 82374; 82435; 82565; 82947; 84075; 84132; 84155; 84295; 84450; 84460; 84520

== ENCOUNTER → 2018-06-04 | Outpatient (CLI) | payer SELFPAY ==
[~2018-06-04] MED LIST: ACE3 PO; BUPR-472 PO; BUPR300T55 PO; CITA-156 PO; CLI150 PO; ESC10 FT; IBU800 PO; LOR5/325 PO; MOM PO; MULT-820 PO; RISP0.2563 PO; RISP3TAB78; SULF-198 PO; [UNRECOGNIZED DRUG - CODE] PO
== END ==
LOC: AMB 22:10
PROVIDERS: ATTEND Nurse Practitioner
DX: R40.20 Unspecified coma (principal); R17 Unspecified jaundice
CPT/HCPCS: A0425; A0427